=== PATIENT | female | born 1960 | race Caucasian/White ===

== ENCOUNTER 2020-01-15 08:20 | Day surgery (SDC) | payer OTHER, SELFPAY ==
--- NOTE | 2020-01-09 13:12 | EKG12_ITS ---
Test Reason : PRE-OP Blood Pressure : / mmHG Vent. Rate : 062 BPM Atrial Rate : 062 BPM P-R Int : 140 ms QRS Dur : 072 ms QT Int : 412 ms P-R-T Axes : 042 000 034 degrees QTc Int : 418 ms Normal sinus rhythm Normal ECG Confirmed by PETE WILKINS, JUDY ([id number]), sound editor GUZMAN PULLIAM ([id number]) on 01/12/2020 8:28:10 AM Referred By: Maricel Mccord Confirmed By:JUDY FREEMAN MD
[2020-01-09 13:19] LABS: Hematocrit 45.1 % (37-47); Hemoglobin 14.1 g/dL (12.0-15.0); Mean Corp Hgb Conc 31.3 g/dL (32-36); Mean Corpuscular Hgb 28.1 pg (27.0-32.0); Platelet Count 322 K/mm3 (150-450); RBC Distribution Width SD 45.5 fl (35.1-43.9); Red Blood Count 5.01 M/mm3 (4.2-5.4); White Blood Count 7.9 K/mm3 (4.4-11.0)
[2020-01-09 13:28] LABS: International Normalized Ratio 1.1; Prothrombin Time (Protime)PT. 13.2 SECONDS (11.7-14.9)
[2020-01-09 13:55] LABS: Thyroid Stim Hormone (TSH) 1.87 uIU/mL (0.358-3.74)
--- NOTE | 2020-01-15 08:07 | PCM.HPOB.BLA ---
- Problem List (1) Pelvic pain Status: Acute (2) Uterine fibroid Status: Acute History and Physical Date of Admission: 01/15/20 DATE OF SERVICE: December 31, 2019 ? PROBLEM:?pelvic pain, uterine fibroid ? DIAGNOSIS:?pelvic pain, uterine fibroid ? PAST SURGICAL HISTORY:? PAST SURGICAL HISTORY PAST SURGICAL HISTORY Procedure Laterality Date ? CATARACT EXTRACTION W/ INTRAOCULAR LENS IMPLANT HX Right 08/16/2017 ? LRI ? SECTION HX ? ? ? CHOLECYSTECTOMY ? 09/20/2016 ? COLONOSCOPY ? 04/21/2013 ? Luis Enrique David ? DXA BONE DENSITY, AXIAL ? 02/19/2013 ? done at [facility] ? ISTENT Right 08/16/2017 ? LASIK Right 1995 ? RADIAL KERATOTOMY Left 1995 ? PAST MEDICAL HISTORY:? PAST MEDICAL HISTORY PAST MEDICAL HISTORY Diagnosis Date ? Depression ? ? GERD (gastroesophageal reflux disease) ? ? Glaucoma ? ? Hyperlipidemia ? ? Hypothyroidism ? ? Osteopenia ? ? changed to osteoporsis now ? SUBJECTIVE:?Still having intermittent pelvic pain.? ? SOCIAL HISTORY:? SOCIAL HISTORY Social History ? Tobacco Use ? Smoking status: Never Smoker ? Smokeless tobacco: Never Used Substance Use Topics ? Alcohol use: Yes ? ? Alcohol/week: 2.5 standard drinks ? ? Types: 3 Glasses of wine per week ? ? Frequency: 2-4 times a month ? ? Drinks per session: 1 or 2 ? ? Binge frequency: Never ? ? Comment: ocassional ? Drug use: No ? ALLERGIES ALLERGIES Allergen Reactions ? Shellfish ? GI Upset ? Seasonal Allergies ? Itching Current Outpatient Medications on File Prior to Visit Medication Sig ? alendronate (FOSAMAX) 70 mg tablet Take 1 tablet by mouth one time a week. TAKE IN THE MORNING WITH A FULL GLASS OF WATER ON AN EMPTY STOMACH. ?DO NOT TAKE ANYTHING ELSE BY MOUTH OR LIE DOWN FOR THE NEXT 30 MINUTES. ? metFORMIN ER (GLUCOPHAGE XR) 500 mg 24 hr tablet Take 1 tablet by mouth daily with breakfast. ? ferrous sulfate 325 mg (65 mg iron) tablet Take 1 tablet by mouth twice daily with meals. ? FLUoxetine (PROZAC) 20 mg capsule Take 1 capsule by mouth once daily. ? atorvastatin (LIPITOR) 20 mg tablet Take 1 tablet by mouth once daily. ? omeprazole (PRILOSEC) 20 mg capsule Take 1 capsule by mouth daily before breakfast. 1/2 hr before meal. ? levothyroxine (LEVOXYL) 75 mcg tablet Take 1 tablet by mouth once daily. Take on empty stomach. For thyroid. ? latanoprost (XALATAN) 0.005 % ophthalmic solution Use 1 Drop in both eyes daily at bedtime. ? Brimonidine-Timolol (COMBIGAN) 0.2-0.5 % drop Use 1 Drop in both eyes twice daily. ? DOCOSAHEXANOIC ACID/EPA (FISH OIL ORAL) Take ?by mouth. ? FOLIC ACID/MULTIVIT-MIN/LUTEIN (CENTRUM SILVER ORAL) Take ?by mouth. ? CALCIUM CITRATE (CITRACAL ORAL) Take ?by mouth. No current facility-administered medications on file prior to visit.? OBJECTIVE: ? VITALS:? BP 124/80 ? Pulse 62 ? Resp 12 ? Ht 5' 2 (1.575 m) ? Wt 196 lb (88.9 kg) ? BMI 35.85 kg/m? ? HEENT: ?Normocephalic, atraumatic, Mucus membranes moist without lesions. ? NECK: ???Soft and Supple. ?No adenopathy , thyromegaly or bruits. ? SKIN: No lesions. ? CHEST: Clear to auscultation. ?No wheezes or rales. ?Good air exchange. ? HEART: Regular rate and rhythm ?No S3 or S4. ?No gallops or rubs. ? BACK: Nontender with no CVA tenderness. ? ABDOMEN: Soft, non-tender, non-distended, no masses, no hepatosplenomegaly. ? LOWER EXTREMITIES: There was no pitting edema, no palpable cords and no skin changes. ? ? ? ASSESSMENT:?pelvic pain, uterine fibroid ? PLAN:?Discussed that the fibroid may not be the cause of her pain. She understands the surgery may not improve her pain and could worsen it due to scar tissue. Reviewed possible hysterectomy at time of surgery - she is agreeable to a hysterectomy is needed at time of myomectomy. Discussed laparoscopic myomectomy, BSO.?The rationale for the proposed surgery was discussed in addition to risks, benefits, and alternatives. ?General pre- and post-operative care was reviewed. ?Questions were answered. ?After discussion, the patient indicated a desire to proceed with the planned surgery. ? Maricel Mccord,?DO
[2020-01-15 08:46] VITALS: BP 142/77; PULSE 62; RESP 15; TEMP 36.2; O2SAT 98; BMI 36.6
[2020-01-15] MEDS: Lactated Ringers 1,000 ML 100 ML IV (08:55)
--- NOTE | 2020-01-15 10:05 | OV_PTH ---
PATIENT: KORIN GALEAS [place] [facility] [place] [facility] [id number] AGE/SX: 59/F ROOM: RE01/15/[address]: Dr. Maricel Mccord DO : 1960 BED: DIS: 01/15/2020 SPEC #: [id number] RECD: 01/15/20 11:26 STATUS: DINESH BUD #: [id number] NATHALIE: 01/15/20 10:[address]: Maricel Mccord DEPT: SURGICAL PATHOLOGY RECD BY: Caprice Lyons ENTERED: 01/15/20 11:32 SP TYPE: OVARY OTHR DR: Dr. Yvrose Mead MD Tissues: Ovary, NOS Procedures: Surgery Specimen Level IV HEADER OPERATION: Laparoscopic bilateral salpingo-oophorectomy PRE-OP DIAGNOSIS: Pelvic pain, uterine fibroid TISSUE SUBMITTED: Bilateral tubes and ovaries MICROSCOPIC DIAGNOSIS Bilateral fallopian tubes and ovaries, bilateral salpingo-oophorectomy: Bilateral fallopian tubes - no pathologic diagnosis. Bilateral ovaries - mesothelial inclusion cysts with focal calcifications. ANTHONY:dane 01/16/20 MICROSCOPIC DESCRIPTION Slides are reviewed. GROSS DESCRIPTION Received in fixative is one container labeled with the patient's name and designated bilateral tubes and ovaries. The specimen consists of bilateral fallopian tubes and ovaries. The fallopian tubes and ovaries are not identified as right or left. One of the fallopian tubes measure 5 cm in length and 0.4 cm in diameter. No tubo-ovarian adhesions are identified. The fimbrial end is present. Sections reveal unremarkable cut surfaces. The adjacent ovary measures 3 x 2.5 x 1 cm. Sections reveal unremarkable cut surfaces. The second fallopian tube measures 6 cm in length and 0.4 cm in diameter. It is similar appearance to first one. Adjacent second ovary measures 2 x 1.5 x 1.2 cm. Sections reveal unremarkable cut surfaces. Regional Project Manager sections are submitted in four cassettes as follows: 1 & 2 - one fallopian tube and adjacent ovary (1 - fallopian tube, 2 - ovary), 3 & 4 - second fallopian tube and adjacent ovary (3 - fallopian tube, 4 - ovary). / ANTHONY:dane 01/15/20 TC:5 CPT: 33115 x2
[2020-01-15] MEDS: Bupivacaine Mpf 0.5% 30 ML VIAL (10:14)
--- NOTE | 2020-01-15 10:48 | DCINST_ITS ---
You will use the following diet at home:: No restrictions Your food should be the consistency of: Regular Discharge Activity: May not drive while taking narcotic pain medications., May Shower May resume sexual activity in: 1-2 weeks - once bleeding has stopped. you will have some light vaginal bleeding Ice area for (Minutes): 15 Weight Bearing Status: Weight bearing as tolerated Lifting Restrictions: No lifting greater than 5-10 pounds for 2 weeks Call your doctor if your incision/area has: Sudden Increased Bleeding, Increased Pain/ Swelling, Increased Redness, Foul Smelling Discharge, Swelling at the incision site Call your doctor if you observe: Fever of 101 or Higher, Inability to urinate, Inability to have a bowel movement, Using more than one pad per hour, Shortness of breath, Dizziness, Fainting spells, Chest pain, Increased palpitations (irregular heartbeat), Calf discomfort, Uncontrolled pain Suture Line Care: Avoid Pulling/Pushing, Avoid Pinching/Bending Remove Dressing in (days):: 0 - The glue will peel up and it is okay to remove Cleanse incision/area with: Soap & Water Allergies/Adverse Reactions: Allergies No Known Allergies Allergy (Verified 01/15/20 08:39) Medications to take at Discharge Alendronate Sodium [Fosamax] 70 mg PO RIVAS 01/08/20 Atorvastatin Calcium [Lipitor] 20 mg PO QHS 01/08/20 Brimonidine Tartrate/Timolol [Combigan Eye Drops] 1 drp EACH EYE BID 01/08/20 Calcium Carb/Vitamin D3/Vit K1 [Citracal Soft Chew] 2 ea PO DAILY 01/08/20 Ferrous Sulfate 325 mg PO BID 01/08/20 Fluoxetine [Prozac] 40 mg PO QHS 01/08/20 Latanoprost 0.005% [Xalatan Opthalmic] 1 drp EACH EYE QHS 01/08/20 Levothyroxine [Synthroid] 75 mcg PO QHS 01/08/20 Metformin HCl 500 mg PO DAILY 01/08/20 Multivit-Min/FA/Lycopen/Lutein [Centrum Silver Tablet] 1 ea PO DAILY 01/08/20 [place]-3 Fatty Acids/Fish Oil [Fish Oil 1,000 mg Capsule] 2 ea PO DAILY 01/08/20 Omeprazole [Prilosec] 20 mg PO QHS 01/08/20 Ibuprofen [Motrin] 600 mg PO Q6H #30 tab 01/15/20 Oxycodone HCl/Acetaminophen [Percocet 5/325] 1 tablet PO Q6H PRN PRN 7 Days #10 tablet 01/15/20 The following prescriptions were given: Ibuprofen [Motrin] 600 mg PO Q6H #30 tab Transmission Status: Pending to [address] Oxycodone HCl/Acetaminophen [Percocet 5/325] 1 tablet PO Q6H PRN PRN 7 Days #10 tablet PRN Reason: Pain Score 6-10/10 Transmission Status: Received by [facility] Primary Care Physician: Yvrose Mead MD [Primary Care Provider] - Test Results: Test results from this visit will be discussed in further detail at your follow- up appointment, if applicable. Please Follow Up With: Maricel Mccord DO When: 12- weeks
--- NOTE | 2020-01-15 10:51 | OP.PCM_ITS ---
Problem List (1) Pelvic pain Status: Acute (2) Uterine fibroid Status: Acute Report of Operation Date of Procedure: 01/15/20 Pre-Operative Diagnosis: Pelvic pain, uterine fibroid, patient desires BSO Post-Operative Diagnosis: As above Surgery/Procedure Performed:: Laparoscopic BSO Description of Surgical Findings:: Small and mobile uterus. There is a 3 cm fibroid that is subserosal and has a thick stalk coming off of the right side of the lower uterine segment and cervix. Bilateral fallopian tubes and ovaries are normal-appearing. Normal- appearing pelvis. lower school music teacher: Jessenia Mcgill Type of Anesthesia:: General Special Medications: None Specimen's removed: Bilateral fallopian tubes and ovaries Drains: None Estimated Blood Loss (mL): 10 Fluids Replaced: 900 Description of Procedure: The patient was taken to the operating room where general anesthesia was induced. She was prepped and draped in the dorsal lithotomy position using yellowfin stirrups. From below a weighted speculum was placed to expose the cervix. Single-tooth tenaculum was placed on the anterior lip of cervix. The cervix was serially dilated to accommodate a Yaa uterine manipulator. The Yaa uterine manipulator was placed. Gloves were changed and attention was turned to the abdominal portion of the case. Local was infiltrated at all port sites. A subumbilical incision was made to accommodate a 5 mm port. The port was placed under direct visualization using the laparoscope. Once confirmed intraperitoneal, CO2 insufflation was initiated. The patient was placed in Trendelenburg position. A left lateral 5 mm port was placed without difficulty. A right lateral 5 mm port was placed without difficulty. The bowel was examined and no injury was noted upon entry into the abdomen. Findings were as noted above. Given the location and size of the fibroid, the decision was made to not perform a myomectomy. Beginning on the patient's right side, the fallopian tube and ovaries were removed using the LigaSure device. The ureter was identified and peristalsis was noted. The same was performed on the left side with good visualization of the ureter. The bilateral fallopian tubes and ovaries were placed in the pelvis. Hemostasis was noted. The Endo Catch bag was inserted to collect the specimens in the bag. The specimens were removed and sent to pathology for review. Pedicles were still hemostatic. The 5 mm ports were removed under direct visualization. The abdomen was exsufflated. The skin was closed with Monocryl in a subcuticular fashion. Skin glue was placed over the incision sites. All instruments were removed from the vagina and a vaginal sweep was performed. Instrument counts and sponge counts were correct. The patient was taken recovery in stable condition. Grafts/Implants Used: None - Complications None - Admit VTE Documentation VTE Present on Admission: No VTE Mechan Device Prophylaxis: SCD's
[2020-01-15 11:03] VITALS: BP 142/77; BP 145/85; PULSE 83; RESP 16; TEMP 36.6; O2SAT 93
[2020-01-15 11:15] VITALS: BP 142/77; BP 148/97; PULSE 79; RESP 16; O2SAT 93
[2020-01-15 11:30] VITALS: BP 142/77; BP 151/93; PULSE 65; RESP 16; O2SAT 97
[2020-01-15 11:45] VITALS: BP 139/90; BP 142/77; PULSE 73; RESP 16; TEMP 36.4; O2SAT 92
[2020-01-15 12:25] VITALS: BP 142/77; BP 145/84; PULSE 68; RESP 16; TEMP 36.5; O2SAT 95
== END 2020-01-15 12:40 | disposition home or self-care (01) ==
LOC: SDC 08:22 → AC 08:23
PROVIDERS: Anesthesiology; PCP Internal Medicine; Referring Provider Obstetrics & Gynecology; Visit Provider Obstetrics & Gynecology
PROC: 0UT9FZZ Resection of Uterus, Via Natural or Artificial Opening With Percutaneous Endoscopic Assistance (ICD-10-PCS; CPT 58661; principal; 2020-01-15 09:45)
DX: D25.9 Leiomyoma of uterus, unspecified (principal); N83.292 Other ovarian cyst, left side; N83.291 Other ovarian cyst, right side; Z11.59 Encounter for screening for other viral diseases; R73.03 Prediabetes; E78.5 Hyperlipidemia, unspecified; E03.9 Hypothyroidism, unspecified; D50.9 Iron deficiency anemia, unspecified; M85.80 Other specified disorders of bone density and structure, unspecified site; H40.9 Unspecified glaucoma; K21.9 Gastro-esophageal reflux disease without esophagitis; F32.9 Major depressive disorder, single episode, unspecified; F41.9 Anxiety disorder, unspecified; Z79.899 Other long term (current) drug therapy; Z78.0 Asymptomatic menopausal state
CPT/HCPCS: 58661; 36415; 84443; 85027; 85610; 85730; 86850; 86900; 86901; 87635; 88305; 93005; G2023; J7120; J2405; U0003

== ENCOUNTER → 2024-02-04 | Outpatient (CLI) | payer MEDICARE, OTHER, SELFPAY ==
--- NOTE | 2024-02-04 06:56 | CT_ITS ---
STUDY: CT MAXILLOFACIAL SINUSES REASON FOR EXAM: Female, 63 years old. [place] LT EYE, RT EYE GLAUCOMA RADIATION DOSAGE (If Supplied By Facility): CTDIvol = ( 33.06 ) mGy, DLP = ( 804.92 ) mGycm TECHNIQUE: The patient was scanned in a multi detector CT scanner. High resolution axial imaging was performed without the administration of intravenous contrast material. Sagittal and coronal images were reconstructed. Individualized dose optimization techniques were used for this CT. COMPARISON: None. FINDINGS: Small benign-appearing submental lymph nodes. FRONTAL SINUSES: Normal aeration, without mucosal inflammatory disease. ETHMOIDAL SINUSES: Normal aeration, without mucosal inflammatory disease. MAXILLARY SINUSES: Normal aeration, without mucosal inflammatory disease. SPHENOIDAL SINUSES: Normal aeration, without mucosal inflammatory disease. There is patency of the bilateral maxillary infundibuli with normal uncinate processes, ethmoid bullae, and hiatus semilunaris. Normal bilateral middle turbinates. Normal bilateral inferior turbinates. Normal midline nasal septum. There is patency of the bilateral nasal airways. The visualized osseous structures are normal. The visualized bilateral orbital contents are normal. CT/Sinus/Facial Bone IMPRESSION: Normal CT examination of the maxillofacial sinuses. Electronically Signed: Les Hernández MD at 15:02 EDT ,
== END | disposition home or self-care (01) ==
LOC: CT 06:51
PROVIDERS: PCP Internal Medicine; Referring Provider Otolaryngology; Visit Provider Otolaryngology
DX: J32.8 Other chronic sinusitis (principal)
CPT/HCPCS: 70486

== ENCOUNTER 2024-07-03 12:57 | Emergency (ER) | payer MEDICARE, OTHER, SELFPAY ==
[2024-07-03 12:57] VITALS: BP 135/92; PULSE 66; RESP 16; TEMP 36.6; O2SAT 97; BMI 42.9
--- NOTE | 2024-07-03 13:37 | EKG12_ITS ---
Test Reason : CHEST PAIN Blood Pressure : */* mmHG Vent. Rate : 65 BPM Atrial Rate : 65 BPM P-R Int : 144 ms QRS Dur : 72 ms QT Int : 386 ms P-R-T Axes : 30 29 48 degrees QTcB Int : 401 ms Normal sinus rhythm Low voltage QRS Cannot rule out Anterior infarct , age undetermined Abnormal ECG Confirmed by PETE WILKINS, JUDY ([id number]), production editor FRANCISCO CABRERA ([id number]) on 07/04/2024 8:22:04 AM Referred By: Penelope Degroot Confirmed By: JUDY FREEMAN MD
--- NOTE | 2024-07-03 13:43 | RAD_ITS ---
STUDY: X-RAY CHEST REASON FOR EXAM: Female, 63 years old. Chest pain/pressure TECHNIQUE: Single AP portable view of the chest. COMPARISON: None. FINDINGS: The lungs are clear and expanded. There is no demonstrated pleural abnormality. Normal size heart. Normal mediastinum and tisha. Normal visualized pulmonary arteries. Normal visualized aortic arch and descending thoracic aorta. Normal visualized thoracic spine. Normal visualized ribs, clavicles, and shoulders. There is no demonstrated abnormality of the visualized soft tissue structures of the upper abdomen. RAD/Chest 1 View (Portable) IMPRESSION: Normal x-ray examination of the chest. Electronically Signed: Bret Smalls MD at 13:54 EST ,
[2024-07-03 13:54] LABS: Absolute Lymphocyte Count 1.69 X10^3/uL (0.83-4.51); Absolute Neutrophil Count 5.8 X10^3/uL (2.0-7.7); Basophil# 0.05 X10^3/uL; Basophil% 0.6 % (0-1); Eosinophil# 0.22 X10^3/uL; Eosinophils% 2.6 % (0-5); Hematocrit 41.6 % (37-47); Hemoglobin 13.6 g/dL (12.0-15.0); Lymphocyte # 1.69 X10^3/ul (0.83-4.51); Mean Corp Hgb Conc 32.7 g/dL (32-36); Mean Corpuscular Hgb 30.6 pg (27.0-32.0); Mean Corpuscular Volume 93.5 fL (81-99); Mean Platelet Vol. 9.7 fl (6.2-12.0); Monocyte# 0.71 X10^3/uL; Monocyte% 8.4 % (0-10); NRBC Flagged by Analyzer 0 % (0-5); Neutrophil # 5.75 X10^3/uL (2.7-7.7); Platelet Count 276 K/mm3 (150-450); RBC Distribution Width CV 12.1 % (11.6-14.6); RBC Distribution Width SD 41.6 fl (35.1-43.9); Red Blood Count 4.45 M/mm3 (4.2-5.4); White Blood Count 8.5 K/mm3 (4.4-11.0)
[2024-07-03 13:57] VITALS: BP 135/73; PULSE 55; RESP 17; O2SAT 95
[2024-07-03 14:52] LABS: Anion Gap 5 (5-15); BUN 16 mg/dL (7-18); BUN/Creat Ratio 16.8 RATIO (10-20); Calcium,Total 8.9 mg/dL (8.5-10.1); Chloride 108 mmol/L (98-107); Creatinine, Serum 0.95 mg/dL (0.55-1.02); EST Glomerular Filtration Rate 63 mL/min (>60); Est Glom Filt Rate - Afr Amer 76 mL/min (>60); Estimated Creatinine Clearance 65.12 ml/min; Glucose 108 mg/dL (74-106); Potassium 4.8 mmol/L (3.5-5.1); Sodium Level 139 mmol/L (136-145); Troponin-I HS (w/2H Reflex) 6 pg/mL (3.0-54.0)
[2024-07-03 14:56] VITALS: BP 127/87; PULSE 59; RESP 18; O2SAT 95
[2024-07-03 15:49] LABS: Reflex Troponin-HS? (from REC) Y
--- NOTE | 2024-07-03 15:50 | ED.VIS.CHEST ---
HPI History of Present Illness Chief Complaint: Chest Pain Informant: patient Narrative Narrative: Patient 63-year-old female with history of stage I breast cancer (status post meniscectomy but currently on estrogen inhibitor), hypothyroidism and prediabetes presenting from urgent care for chest pressure. Patient states she started feeling lousy Sunday night (4 to 5 days ago). She states that she has had a pressure in her chest and she feels like her someone sitting on her. It is worse if she takes a deep breath. Chest discomfort radiates under bilateral breast. She denies any associated fever or cough. She took a home COVID test which was negative. 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 She denies any swelling of her legs or history of DVT or PE. She has had associated headache, but denies any nasal congestion or sore throat. She went to urgent care who felt that likely this is viral but recommend she come to the ER for further evaluation. She denies associated nausea, vomiting, diarrhea or abdominal pain. No urinary symptoms reported. No other complaints or concerns reported at this time. Prior Similar Symptoms: Yes (with COVID infection) Recent Illness/Hospitalization: No PFSH PFS Medical History Hx of breast cancer Hx of breast cancer Hypercholesteremia Hypertension Home Medications ?Medication ?Instructions ?Recorded ?Last Taken ?Type alendronate 70 mg tablet 70 mg PO RIVAS bone health 01/08/20 Unknown History atorvastatin 20 mg tablet 20 mg PO QHS cholesterol 01/08/20 Unknown History brimonidine 0.2 %-timolol 0.5 % 1 drp EACH EYE BID eye health 01/08/20 Unknown History eye drops calcium 500 mg-vitamin D3 1,000 2 ea PO DAILY supplement 01/08/20 Unknown History unit-vitamin K 40 mcg chewable tablet ferrous sulfate 325 mg (65 mg 325 mg PO BID supplement 01/08/20 Unknown History iron) tablet fluoxetine 20 mg capsule 40 mg PO QHS 01/08/20 Unknown History latanoprost 0.005 % eye drops 1 drp EACH EYE QHS eye health 01/08/20 Unknown History levothyroxine 75 mcg tablet 75 mcg PO QHS thyroid 01/08/20 Unknown History metformin 500 mg tablet 500 mg PO DAILY prediabetic 01/08/20 Unknown History tcnfezyb-prc-urpnw acid 0.4 1 ea PO DAILY supplement 01/08/20 Unknown History mg-lycopene 300 mcg-lutein 250 mcg tablet omega-3 fatty acids-fish oil 340 2 ea PO DAILY 01/08/20 Unknown History mg-1,000 mg capsule omeprazole 20 mg capsule,delayed 20 mg PO QHS Acid Reflux 01/08/20 Unknown History release ibuprofen 600 mg tablet 600 mg PO Q6H #30 tabs 01/15/20 Unknown Rx Allergy/AdvReac Type Severity Reaction Status Date / Time shellfish derived AdvReac Severe Nausea/Vom/ Verified 07/03/24 13:01 Diarrhea Surgical History Hx of lumpectomy Social History Smoking Status: Never smoker ROS ROS ED Constitutional Constitutional ED: Reports other Details: Fatigue ; Denies chills or fever(s) ENT ENT ED: Denies ear pain, rhinorrhea or sore throat Cardiovascular Cardiovascular: Reports as per HPI and chest pain Respiratory/Chest Respiratory/Chest: Reports dyspnea; Denies cough Gastrointestinal Gastrointestinal: Denies abdominal pain, constipation, diarrhea, nausea or vomiting Genitourinary Genitourinary ED: Denies dysuria or urinary frequency Musculoskeletal Musculoskeletal: Denies arthralgias or myalgias Integumentary Denies rash Neurologic Neurologic: Reports headache(s) and weakness; Denies paresthesias Hematologic/Lymphatic Hematologic/Lymphatic: Denies easy bleeding or easy bruising EXAM Physical Exam Const Vital Signs: 07/03/24 12:57 07/03/24 13:57 07/03/24 13:57 Temperature 97.8 F Temperature Source Oral Pulse Rate 66 55 L Respiratory Rate 16 17 Respiratory Effort Blood Pressure 135/92 H 135/73 H Blood Pressure Mean 106 93 Pulse Ox 97 95 95 Oxygen Delivery Method Room Air Nasal Cannula Room Air 07/03/24 14:22 07/03/24 14:56 07/03/24 16:00 Temperature Temperature Source Pulse Rate 59 L 55 L Respiratory Rate 18 18 Respiratory Effort Normal Blood Pressure 127/87 H 144/80 H Blood Pressure Mean 100 101 Pulse Ox 95 94 Oxygen Delivery Method Room Air Room Air Positive well nourished and well developed General Appearance ED: well developed and NAD HEENT Reports TM's clear and moist mucous membranes normocephalic and atraumatic Tympanic Membrane ED: Yes TM's clear Eyes PERRL and EOMs intact bilaterally Neck supple Chest Wall inspection of chest normal and palpation of chest normal Resp normal respiratory effort and clear to auscultation bilaterally Cardio regular rate, regular rhythm and no murmurs GI normal to inspection, nondistended, normoactive bowel sounds Extremity normal to inspection General Extremety ED: Negative for edema or pulses abnormal General Extremity: Negative for edema or pulses abnormal Neuro oriented x3 Sensorium / Orientation: awake Motor Exam: Negative for general weakness Psych mental status grossly normal Skin no rashes or lesions noted and no wounds Heart Score History: Slightly/Non-Suspicious ECG: Normal Age: >/= 65 years Risk Factors: 1 or 2 Risk Factors Troponin: </= Normal Limit Score: 3 MDM MDM Lab Data Attestation: I reviewed the patient's lab results. Lab results narrative: Patient is evaluated for chest pressure and has been on for the past few days. It is pleuritic in nature. Has had associated headache and that maybe she is a viral syndrome. Wanted to rule out any more severe pathology. Patient overall is quite well-appearing. Vital signs normal in the emergency room. She is not hypoxic. Pain is slightly reproducible with palpation of the chest. Cardiac workup including CBC, BMP, delta high sensitive troponin and D-dimer all largely normal. D-dimer is mildly elevated but normal for age adjustment. Chest x-ray reviewed by myself as well as radiology does not show an acute process. EKG does not show any acute ischemic changes. Results reviewed with patient. Given negative workup she is comfortable being discharged home. She does have a negative COVID flu RSV test here. Counseled alternate ibuprofen and Tylenol as needed for discomfort, rest and push fluids. Given return precautions. Encouraged follow-up with her primary care doctor. Discharged home in stable condition. Labs: Laboratory Results - last 24 hr 07/03/24 07/03/24 07/03/24 13:44 15:19 15:51 WBC 8.5 RBC 4.45 Hgb 13.6 Hct 41.6 MCV 93.5 MCH 30.6 MCHC 32.7 RDW Std Deviation 41.6 RDW Coeff of [place] 12.1 Plt Count 276 MPV 9.7 Immature Gran % (Auto) 0.400 Neut % (Auto) 68.0 Lymph % (Auto) 20.0 [place] % (Auto) 8.4 Eos % (Auto) 2.6 Baso % (Auto) 0.6 Absolute Neuts (auto) 5.8 Absolute Lymphs (auto) 1.69 Nucleated RBC % 0 D-Dimer Quant (PE/DVT) 0.55 H* Sodium 139 Potassium 4.8 Chloride 108 H Carbon Dioxide 26.0 Anion Gap 5 BUN 16 Creatinine 0.95 Estim Creat Clear Calc 65.12 Est GFR (MDRD) Af Amer 76 Est GFR (MDRD) Non-Af 63 BUN/Creatinine Ratio 16.8 Glucose 108 H Calcium 8.9 Troponin I High Sens 6 8 Radiography Diagnostic Testing: Clinical Impression(s) from Imaging Studies Chest X-Ray 07/03/24 13:43 IMPRESSION: Normal x-ray examination of the chest. Electronically Signed: Bret Smalls MD at 13:54 EST Reading Location ID and State: [address] [place] [address] , Service support , Rhythm Strip Rhythm Strip: Sinus Rhythm Rate: 65 Ectopy: None EKG Initial EKG: Interpretation: Sinus Rhythm Comments: Normal sinus rhythm at a rate of 65 bpm Low voltage QRS Normal axis Normal intervals Normal ST segments Prior EKG tracings: not available for review Prior: No Prior Discharge Plan Triage Chief Complaint: Chest Pain ED Provider: Penelope Degroot Dx/Rx/DC Orders Clinical Impression: Chest pain of uncertain etiology Instructions: ED Chest Pain, Uncertain Cause Prescriptions: No Action latanoprost 1 DROP bottle 1 drp EACH EYE QHS metformin 500 MG tablet 500 mg PO DAILY atorvastatin 20 MG tablet 20 mg PO QHS alendronate 70 MG tablet 70 mg PO RIVAS levothyroxine 75 MCG tablet 75 mcg PO QHS ferrous sulfate 325 MG tablet 325 mg PO BID omeprazole 20 MG capsule 20 mg PO QHS fluoxetine 20 MG capsule 40 mg PO QHS [id number]-rqt-VN-lycopen-lutein 1 EACH tablet 1 ea PO DAILY omega-3 fatty acids-fish oil 1 EACH capsule 2 ea PO DAILY brimonidine-timolol 1 DROP bottle 1 drp EACH EYE BID calcium-vitamin D3-vitamin K 1 EACH tablet,chewable 2 ea PO DAILY ibuprofen 600 MG tablet 600 mg PO Q6H Qty: 30 0RF Primary Care Provider: Yvrose Mead Referrals: Yvrose Mead MD [Primary Care Provider] - Activity Restrictions/Additional Instructions: Your testing today was all largely normal and very reassuring. Exact cause of the pain is not clear. It is possible it could be muscle skeletal or associated with pain in the chest wall. Please follow-up with your primary care doctor especially if this persist. In the meantime alternate ibuprofen and Tylenol, and make sure drink plenty of fluids and resting. Return if you have progression or change in your symptoms or further concerns. Print Language: Guatemalan Disposition Disposition: Home, Self Care
[2024-07-03 15:52] LABS: D-Dimer Quantitative (DVT/PE) 0.55 FEU/ug/m (0.27-0.49)
[2024-07-03 16:00] VITALS: BP 144/80; PULSE 55; RESP 18; O2SAT 94
[2024-07-03 16:21] LABS: Troponin-I HS 8 pg/mL (3.0-54.0)
[2024-07-03 17:02] VITALS: BP 159/83; PULSE 751; RESP 10; TEMP 36.7; O2SAT 96
== END 2024-07-03 17:02 | disposition home or self-care (01) ==
PROVIDERS: Emergency Provider Emergency Medicine; PCP Internal Medicine; Referring Provider Emergency Medicine; Visit Provider Emergency Medicine
DX: R07.89 Other chest pain (principal); E03.9 Hypothyroidism, unspecified; E78.00 Pure hypercholesterolemia, unspecified; R51.9 Headache, unspecified; R73.03 Prediabetes; Z79.83 Long term (current) use of bisphosphonates; Z79.84 Long term (current) use of oral hypoglycemic drugs; Z79.890 Hormone replacement therapy; Z79.899 Other long term (current) drug therapy; Z11.52 Encounter for screening for COVID-19; Z85.3 Personal history of malignant neoplasm of breast
CPT/HCPCS: 71045; 80048; 84484; 85025; 85379; 87631; 93005; 99284; A4216

== ENCOUNTER 2024-08-05 09:18 | Emergency (ER) | payer MEDICARE, OTHER, SELFPAY ==
[2024-08-05 09:19] VITALS: BP 89/53; BP 92/44; PULSE 67; PULSE 68; RESP 13; RESP 23; TEMP 37.2; O2SAT 93; BMI 42.5
--- NOTE | 2024-08-05 09:31 | EKG12_ITS ---
Test Reason : CP Blood Pressure : */* mmHG Vent. Rate : 67 BPM Atrial Rate : 67 BPM P-R Int : 148 ms QRS Dur : 80 ms QT Int : 442 ms P-R-T Axes : 20 3 33 degrees QTcB Int : 467 ms Normal sinus rhythm Normal ECG Confirmed by PETE WILKINS, JUDY ([id number]), editor sound GUZMAN PULLIAM ([id number]) on 08/07/2024 7:00:41 AM Referred By: Confirmed By: JUDY FREEMAN MD
--- NOTE | 2024-08-05 09:31 | CT_ITS ---
PROCEDURE: CTA CHST, ABD, PEL W AND/OR WO REASON FOR EXAM: Syncopal episode with fall. Headaches. Diaphoresis. TECHNIQUE: CTA imaging of the chest, abdomen and pelvis with intravenous contrast. 3D reconstructions. IV CONTRAST: 100 mL of Isovue-370 was injected intravenously. COMPARISON: None. FINDINGS: Heterogeneous appearance of the thyroid gland. Heart: Normal heart size. No pericardial effusion. Pulmonary Vessels: No large central filling defects. Contrast timing was optimized for evaluation of the aorta. Arch Vessels: Unremarkable. Thoracic Aorta: No thoracic aortic aneurysm or dissection. Abdominal Aorta: No aneurysm or dissection. Mesenteric Arteries: Normal. Renal Arteries: Normal. Iliac Arteries: Iliac arteries are normal in size with no significant plaque or stenosis. Other Findings: The lungs are grossly clear. No pleural effusions or pneumothorax. Diffuse fatty infiltration of the liver. Status post cholecystectomy. Small umbilical hernia containing fat. Calcified fibroid uterus. There are mild degenerative changes at the spine. No acute abnormality is seen. CT/CTA Chst, Abd, Pel W and/or WO IMPRESSION: One or more dose reduction techniques were used (e.g., Automated exposure contr ol, adjustment of the mA and/or kV according to patient size, use of iterative reconstruction technique). Reading Location: [facility]
--- NOTE | 2024-08-05 09:31 | CT_ITS ---
EXAM: CT Head Without Intravenous Contrast CLINICAL INDICATION: TECHNIQUE: Axial computed tomography images of the head/brain without intravenous contrast. This CT exam was performed using one or more of the following dose reduction techniques: automated exposure control, adjustment of the mA and/or kV according to patient size, and/or use of iterative reconstruction technique. COMPARISON: No relevant prior studies available. FINDINGS: BRAIN AND EXTRA-AXIAL SPACES: No acute intracranial hemorrhage, midline shift or mass effect. If symptoms persist, further evaluation with MRI is recommended. No significant white matter disease. BONES/JOINTS: Unremarkable. No acute fracture. SOFT TISSUES: Unremarkable. SINUSES: Unremarkable as visualized. No acute sinusitis. MASTOID AIR CELLS: Unremarkable as visualized. No mastoid effusion. CT/Brain/Head without Contrast IMPRESSION: No acute intracranial hemorrhage, midline shift or mass effect. If symptoms per sist, further evaluation with MRI is recommended. Reading Location[facility]
--- NOTE | 2024-08-05 09:33 | EX.ED.DYSGE1 ---
HPI History of Present Illness Chief Complaint: Chest Pain Detail of Chief Complaint: Syncope Informant: patient Narrative Narrative: Patient presents to the emergency department with complaint of a syncopal episode this morning. Patient states that she woke up this morning not feeling well. She went to the bathroom. When she tried to stand up off the toilet she passed out. She is not sure if she hit her head but does describe a headache. She then had dry heaves and vomiting. Initially had a bowel movement that was formed and subsequently developed watery stool. EMS was called. Patient went to bed feeling fine. She has history of hypertension as well as high cholesterol and history of breast cancer with prior lumpectomy. She has had a cholecystectomy. She describes upper abdomen discomfort. Patient was given Zofran by squad and her nausea is improved. [facility] Medical History Hx of breast cancer Hx of breast cancer Hypercholesteremia Hypertension Home Medications ?Medication ?Instructions ?Recorded ?Last Taken ?Type alendronate 70 mg tablet 70 mg PO RIVAS bone health 01/08/20 Unknown History atorvastatin 20 mg tablet 20 mg PO QHS cholesterol 01/08/20 Unknown History brimonidine 0.2 %-timolol 0.5 % 1 drp EACH EYE BID eye health 01/08/20 Unknown History eye drops calcium 500 mg-vitamin D3 1,000 2 ea PO DAILY supplement 01/08/20 Unknown History unit-vitamin K 40 mcg chewable tablet ferrous sulfate 325 mg (65 mg 325 mg PO BID supplement 01/08/20 Unknown History iron) tablet fluoxetine 20 mg capsule 40 mg PO QHS 01/08/20 Unknown History latanoprost 0.005 % eye drops 1 drp EACH EYE QHS eye health 01/08/20 Unknown History levothyroxine 75 mcg tablet 75 mcg PO QHS thyroid 01/08/20 Unknown History metformin 500 mg tablet 500 mg PO DAILY prediabetic 01/08/20 Unknown History qwmtwrql-nua-huets acid 0.4 1 ea PO DAILY supplement 01/08/20 Unknown History mg-lycopene 300 mcg-lutein 250 mcg tablet omega-3 fatty acids-fish oil 340 2 ea PO DAILY 01/08/20 Unknown History mg-1,000 mg capsule omeprazole 20 mg capsule,delayed 20 mg PO QHS Acid Reflux 01/08/20 Unknown History release ibuprofen 600 mg tablet 600 mg PO Q6H #30 tabs 01/15/20 Unknown Rx ondansetron 4 mg disintegrating 4 mg PO Q8H PRN PRN Nausea #10 tabs 08/05/24 Unknown Rx tablet Allergy/AdvReac Type Severity Reaction Status Date / Time shellfish derived AdvReac Severe Nausea/Vom/ Verified 08/05/24 09:22 Diarrhea Surgical History Hx of lumpectomy Social History Smoking Status: Never smoker ROS ROS ED Review of Systems ROS Unobtainable: other Constitutional Constitutional ED: Reports lethargy; Denies chills, fever(s), sweats or weight loss Eyes Eyes: Denies blurry vision, change in vision or diplopia ENT ENT ED: Denies rhinorrhea or sore throat Cardiovascular Cardiovascular: Reports chest pain; Denies orthopnea or racing heartbeat Respiratory/Chest Respiratory/Chest: Denies cough, dyspnea, dyspnea on exertion, orthopnea or sputum Gastrointestinal Gastrointestinal: Reports abdominal pain, diarrhea, nausea and vomiting Genitourinary Genitourinary ED: Denies dysuria, hematuria or urinary frequency Musculoskeletal Musculoskeletal: Denies arthralgias, back pain, myalgias or neck pain Integumentary Denies abscess, Abrasions or rash Neurologic Neurologic: Reports headache(s) and other Details: Syncope ; Denies weakness Psychiatric Psychiatric: Denies anxiety, depression or suicidal thoughts Endocrine Endocrinology: Denies polydipsia, polyphagia or polyuria Hematologic/Lymphatic Hematologic/Lymphatic: Denies easy bleeding, easy bruising or lymphadenopathy Allergic/Immunologic Allergic/Immunologic ED: Denies mouth swelling, tongue swelling or urticaria EXAM Physical Exam Const Vital Signs: 08/05/24 09:19 08/05/24 09:19 08/05/24 09:37 Temperature 99 F Temperature Source Temporal Pulse Rate 67 68 62 Pulse Rate [Lying] Pulse Rate [Sitting (for 1 minute prior to obtaining)] Pulse Rate [Standing (for 1 minute prior to obtaining)] Respiratory Rate 23 H 13 12 Blood Pressure 92/44 L 89/53 L 64/48 L Blood Pressure [Lying] Blood Pressure [Sitting (for 1 minute prior to obtaining)] Blood Pressure [Standing (for 1 minute prior to obtaining)] Blood Pressure Mean 60 65 53 Blood Pressure Mean [Lying] Blood Pressure Mean [Sitting (for 1 minute prior to obtaining)] Blood Pressure Mean [Standing (for 1 minute prior to obtaining)] Pulse Ox 93 93 93 Oxygen Delivery Method Room Air Room Air Room Air 08/05/24 10:02 08/05/24 12:00 08/05/24 13:41 Temperature Temperature Source Pulse Rate 60 62 Pulse Rate [Lying] 71 Pulse Rate [Sitting (for 1 minute prior to obtaining)] 71 Pulse Rate [Standing (for 1 minute prior to obtaining)] 89 Respiratory Rate 18 16 Blood Pressure 102/61 108/64 Blood Pressure [Lying] 129/71 H Blood Pressure [Sitting (for 1 minute prior to obtaining)] 128/90 H Blood Pressure [Standing (for 1 minute prior to obtaining)] 125/77 H Blood Pressure Mean 74 78 Blood Pressure Mean [Lying] 90 Blood Pressure Mean [Sitting (for 1 minute prior to obtaining)] 102 Blood Pressure Mean [Standing (for 1 minute prior to obtaining)] 93 Pulse Ox 100 100 Oxygen Delivery Method Room Air Positive well nourished and well developed General Appearance ED: well developed and NAD HEENT Reports TM's clear and moist mucous membranes normocephalic and atraumatic; Negative for trauma or tenderness Tympanic Membrane ED: Yes TM's clear Eyes PERRL and EOMs intact bilaterally General Eye ED: Negative for pale conjunctiva or scleral icterus Neck no lymphadenopathy, supple and no JVD General: Negative for tenderness Chest Wall inspection of chest normal and palpation of chest normal Chest: Negative for tenderness Resp normal respiratory effort and clear to auscultation bilaterally Effort and Inspection: Negative for respiratory distress or pain with movement Auscultation: Negative for rhonchi, wheezes or diminished lung sounds Cardio regular rate, regular rhythm, S1 normal heart sound, S2 normal heart sound and no murmurs Peripheral Pulses: pulses 2+ throughout GI normal to inspection, nondistended, normoactive bowel sounds, soft to palpation, non-tender, non-distended and no masses Back/Spine no CVA tenderness and no thoracic nor lumbar tenderness Extremity normal to inspection General Extremety ED: Negative for edema General Extremity: Negative for edema Neuro oriented x3, CN's II-XII intact bilaterally, no sensory deficits noted and gait normal Sensorium / Orientation: awake, alert, oriented to person, oriented to place and oriented to time Motor Exam: strength 5/5 throughout and strength abnormal Psych mental status grossly normal Skin no rashes or lesions noted and no wounds MDM MDM MDM Narrative Medical decision making narrative: Patient presents the emergency department after a syncopal episode and noted low blood pressures. She did not feel well before going to the bathroom and then had a syncopal episode in the bathroom. Somewhat hypotensive on arrival but did respond to fluids. Clinically she looks well without evidence of trauma. She describes some diffuse pain in her upper abdomen and felt achy all over. She did have some watery stools as well as nausea and vomiting. IV line established on arrival. EKG obtained showed a sinus rhythm with rate of 67 bpm with no acute ST segment changes. CBC with differential show, 17.7 hemoglobin 14.3 and platelet count of 297. Chemistries unremarkable. BUN was 16 and creatinine 1.26. Lipase normal at 71. Troponin was normal at 8. LFTs unremarkable. Urinalysis was negative. COVID flu and RSV was negative. Delta troponin was negative. I did do a CT scan of the chest and abdomen pelvis with contrast that was unremarkable. COVID flu and RSV testing was negative. Patient was given a liters fluid bolus. Afterwards orthostatics obtained were normal. She feels markedly improved after treatment. The elevated white count I suspect is likely reactive is I do not find any other signs of infection. Suspect likely a viral type syndrome or gastroenteritis. Will send her home with a prescription for Zofran. I suspect she may have had a vasovagal episode. Advised to push fluids. Lab Data Attestation: I reviewed the patient's lab results. Labs: Laboratory Results - last 24 hr 08/05/24 08/05/24 08/05/24 09:40 10:34 12:30 WBC 17.7 H RBC 4.64 Hgb 14.3 Hct 43.4 MCV 93.5 MCH 30.8 MCHC 32.9 RDW Std Deviation 41.8 RDW Coeff of [place] 12.0 Plt Count 297 MPV 10.0 Immature Gran % (Auto) 0.500 Neut % (Auto) 82.3 H Lymph % (Auto) 9.7 L [place] % (Auto) 5.5 Eos % (Auto) 1.7 Baso % (Auto) 0.3 Absolute Neuts (auto) 14.6 H Absolute Lymphs (auto) 1.72 Nucleated RBC % 0 Sodium 137 Potassium 4.6 Chloride 106 Carbon Dioxide 19.0 L Anion Gap 12 BUN 16 Creatinine 1.26 H Estim Creat Clear Calc 50.75 Est GFR (MDRD) Af Amer 55 L Est GFR (MDRD) Non-Af 45 L BUN/Creatinine Ratio 12.7 Glucose 143 H Calcium 9.1 Total Bilirubin 0.60 AST 39 H ALT 45 Alkaline Phosphatase 73 Troponin I High Sens 8 Total Protein 7.9 Albumin 3.3 Globulin 4.6 H Albumin/Globulin Ratio 0.7 L Lipase 71 Urine Color Straw Urine Clarity Clear Urine pH 7.0 Ur Specific [place] 1.005 Urine Protein 30 H Urine Glucose (UA) Normal Urine Ketones Negative Urine Occult Blood 10 H Urine Nitrite Negative Urine Bilirubin Negative Urine Urobilinogen Normal Ur Leukocyte Esterase Negative Urine RBC 0-5 SEEN Urine WBC 0-5 SEEN Ur Squamous Epith Cells 0-5 SEEN Urine Bacteria RARE Urine Mucus 0 SEEN 08/05/24 12:35 WBC RBC Hgb Hct MCV MCH MCHC RDW Std Deviation RDW Coeff of [place] Plt Count MPV Immature Gran % (Auto) Neut % (Auto) Lymph % (Auto) [place] % (Auto) Eos % (Auto) Baso % (Auto) Absolute Neuts (auto) Absolute Lymphs (auto) Nucleated RBC % Sodium Potassium Chloride Carbon Dioxide Anion Gap BUN Creatinine Estim Creat Clear Calc Est GFR (MDRD) Af Amer Est GFR (MDRD) Non-Af BUN/Creatinine Ratio Glucose Calcium Total Bilirubin AST ALT Alkaline Phosphatase Troponin I High Sens 7 Total Protein Albumin Globulin Albumin/Globulin Ratio Lipase Urine Color Urine Clarity Urine pH Ur Specific [place] Urine Protein Urine Glucose (UA) Urine Ketones Urine Occult Blood Urine Nitrite Urine Bilirubin Urine Urobilinogen Ur Leukocyte Esterase Urine RBC Urine WBC Ur Squamous Epith Cells Urine Bacteria Urine Mucus Radiography Diagnostic Testing: Clinical Impression(s) from Imaging Studies Brain CT 08/05/24 09:31 IMPRESSION: No acute intracranial hemorrhage, midline shift or mass effect. If symptoms persist, further evaluation with MRI is recommended. Reading Location: [facility] Chest/Abdomen/Pelvis CTA 08/05/24 09:31 IMPRESSION: One or more dose reduction techniques were used (e.g., Automated exposure control, adjustment of the mA and/or kV according to patient size, use of iterative reconstruction technique). Reading Location: [facility] EKG Initial EKG: Attestation: I personally reviewed and interpreted this EKG as follows: Comments: Sinus rhythm with rate of 67 bpm with no acute ST segment changes Discharge Plan Triage Chief Complaint: Chest Pain Other Complaint: Nausea/Vomiting/Diarrhea ED Provider: Estrella Wilkinson Dx/Rx/DC Orders Clinical Impression: Syncope, vasovagal, Viral gastroenteritis Instructions: ED Fainting, Vagal Reaction, ED Gastroenteritis, Viral (Adult) Prescriptions: New ondansetron 4 mg tablet,disintegrating 4 mg PO Q8H PRN PRN (Reason: Nausea) Qty: 10 0RF No Action latanoprost 1 DROP bottle 1 drp EACH EYE QHS metformin 500 MG tablet 500 mg PO DAILY atorvastatin 20 MG tablet 20 mg PO QHS alendronate 70 MG tablet 70 mg PO RIVAS levothyroxine 75 MCG tablet 75 mcg PO QHS ferrous sulfate 325 MG tablet 325 mg PO BID omeprazole 20 MG capsule 20 mg PO QHS fluoxetine 20 MG capsule 40 mg PO QHS vpuirvvm-avp-FN-lycopen-lutein 1 EACH tablet 1 ea PO DAILY omega-3 fatty acids-fish oil 1 EACH capsule 2 ea PO DAILY brimonidine-timolol 1 DROP bottle 1 drp EACH EYE BID calcium-vitamin D3-vitamin K 1 EACH tablet,chewable 2 ea PO DAILY ibuprofen 600 MG tablet 600 mg PO Q6H Qty: 30 0RF Primary Care Provider: Yvrose Mead Referrals: Yvrose Mead MD [Primary Care Provider] - Print Language: French Disposition Disposition: Home, Self Care
[2024-08-05] MEDS: 0.9% Normal Saline (1000mL) 1,000 ML 1000 ML IV (09:34)
[2024-08-05 09:37] VITALS: BP 64/48; PULSE 62; RESP 12; O2SAT 93
[2024-08-05 10:02] VITALS: BP 102/61; PULSE 60; RESP 18; O2SAT 100
[2024-08-05 10:42] LABS: Absolute Lymphocyte Count 1.72 X10^3/uL (0.83-4.51); Absolute Neutrophil Count 14.6 X10^3/uL (2.0-7.7); Basophil# 0.05 X10^3/uL; Basophil% 0.3 % (0-1); Eosinophils% 1.7 % (0-5); Hematocrit 43.4 % (37-47); Hemoglobin 14.3 g/dL (12.0-15.0); Lymphocyte # 1.72 X10^3/ul (0.83-4.51); Lymphocyte % 9.7 % (19-41); Mean Corp Hgb Conc 32.9 g/dL (32-36); Mean Corpuscular Hgb 30.8 pg (27.0-32.0); Mean Corpuscular Volume 93.5 fL (81-99); Monocyte# 0.98 X10^3/uL; Monocyte% 5.5 % (0-10); NRBC Flagged by Analyzer 0 % (0-5); Neutrophil # 14.57 X10^3/uL (2.7-7.7); Neutrophil % 82.3 % (47-70); Platelet Count 297 K/mm3 (150-450); RBC Distribution Width SD 41.8 fl (35.1-43.9); Red Blood Count 4.64 M/mm3 (4.2-5.4); White Blood Count 17.7 K/mm3 (4.4-11.0)
[2024-08-05 11:00] LABS: ALB/GLOB Ratio 0.7 RATIO (0.9-2.4); AST(SGOT) 39 U/L (15-37); Alanine Aminotransfer ALT/SGPT 45 U/L (13-56); Albumin, Serum 3.3 g/dL (3.2-5.0); Alkaline Phosphatase 73 U/L (45-117); Anion Gap 12 (5-15); BUN 16 mg/dL (7-18); BUN/Creat Ratio 12.7 RATIO (10-20); Calcium,Total 9.1 mg/dL (8.5-10.1); Chloride 106 mmol/L (98-107); Creatinine, Serum 1.26 mg/dL (0.55-1.02); EST Glomerular Filtration Rate 45 mL/min (>60); Est Glom Filt Rate - Afr Amer 55 mL/min (>60); Estimated Creatinine Clearance 50.75 ml/min; Globulin 4.6 g/dL (2.2-4.2); Glucose 143 mg/dL (74-106); Lipase 71 U/L (13-75); Potassium 4.6 mmol/L (3.5-5.1); Protein, Total 7.9 g/dL (6.4-8.2); Sodium Level 137 mmol/L (136-145); Troponin-I HS (w/2H Reflex) 8 pg/mL (3.0-54.0)
[2024-08-05] MEDS: 0.9% Normal Saline (1000mL) 1,000 ML 999 ML IV (11:36)
[2024-08-05 12:00] VITALS: BP 108/64; PULSE 62; RESP 16; O2SAT 100
[2024-08-05 12:12] LABS: Reflex Troponin-HS? (from REC) Y
[2024-08-05 12:45] LABS: Mucous, Urine 0 SEEN /hpf (<or=2+)
[2024-08-05 12:55] LABS: Color, Urine Straw (Yellow); Glucose, Dipstick Normal (Normal); Ketone-Dipstick Negative (Negative); Leukocyte Esterase-Dipstick Negative /ul (Negative); Nitrite-Dipstick Negative (Negative); Occult Blood-Urine 10 /ul (Negative); Protein-Dipstick 30 mg/dl (Negative); Specific Gravity, Urine 1.005 (1.002-1.030); Urine Bilirubin Dipstick Negative (Negative); Urine Clarity Clear (Clear); Urine Urobilinogen Normal (Normal)
[2024-08-05 13:05] LABS: Squamous Epithelial Cells - UA 0-5 SEEN /hpf (5-10); White Blood Cells 0-5 SEEN /hpf (0-5)
[2024-08-05 13:06] LABS: Bacteria RARE /hpf (None Seen); Red Blood Cells-Urine 0-5 SEEN /hpf (0-5)
[2024-08-05 13:19] LABS: Troponin-I HS 7 pg/mL (3.0-54.0)
[2024-08-05 13:41] VITALS: BP 125/77; BP 128/90; BP 129/71; PULSE 71; PULSE 89
[2024-08-05 14:00] VITALS: BP 127/77; PULSE 97; RESP 18; O2SAT 99
== END 2024-08-05 14:22 | disposition home or self-care (01) ==
PROVIDERS: Emergency Provider Emergency Medicine; PCP Internal Medicine; Visit Provider Emergency Medicine
DX: R55 Syncope and collapse (principal); A08.4 Viral intestinal infection, unspecified; R07.9 Chest pain, unspecified; Z11.52 Encounter for screening for COVID-19; I10 Essential (primary) hypertension; E78.00 Pure hypercholesterolemia, unspecified; Z79.84 Long term (current) use of oral hypoglycemic drugs; Z79.890 Hormone replacement therapy; Z79.899 Other long term (current) drug therapy
CPT/HCPCS: 70450; 71275; 74174; 80053; 81001; 83690; 84484; 85025; 87631; 93005; 96360; 96361; 99285; Q9967; A4216